=== PATIENT | male | born 1975 | race Caucasian/White ===

== ENCOUNTER 2016-11-07 20:09 | Emergency (ER) | payer SELFPAY ==
[2016-11-07 20:15] VITALS: BP 150/89; BMI 29.5
--- NOTE | 2016-11-07 21:33 | DR.GENAD ---
HPI - PCP Primary Care Physician: [email or web address] - HPI Comment HPI Comment: HISTORY OF HEMORRHIODS. BLEEDING PERSISTING AND NOW PAINFUL. BLOOD BRIGHT RED. - Complaint/Symptoms Chief Complaint Doctors Comments: RECTAL BLEEDING TIMES 3 DAYS. EXTERNAL HEMORRHOIDS AND NOW PAIN. Chief Complaint:: PT STATES" FOR THE LAST 3 DAYS I'VE BEEN PASSING BLOOD AND TODAY IT WAS ALOT OF BRIGHT RED BLOOD IN MY STOOL" PT ADMITS TOO HAVING HX OF HEMMOROIDS - Nurses notes reviewed Nurses Notes Review: Yes - Source History Provided: Patient - Mode of Arrival Mode of Arrival: Ambulatory - Timing Onset of Chief Complaint: 11/05/16 Came on: Suddenly - Duration Duration: Constant Duration: Days - Severity Severity: Moderate PMH - PMH Past Medical History: No Past Surgical History: No - Family History History of Family Medical Conditions: Yes Family Medical History: Diabetes Mellitus, Cancer, Hypertension - Social History Type of Tobacco Use: Cigarettes Alcohol Use: None Do you use any recreational Drugs:: No Lives With: Family Lives Where: Home - infectious screening In the last 2 months have you had wt loss of >10#?: NO Have you had fever, night sweats or hemotysis?: No Have you traveled outside the country in the last 6 months?: No Isolation: Standard ROS - Review of Systems Constitutional: No Symptoms Reported Eyes: No Symptoms Reported ENTM: No Symptoms Reported Respiratoy: No Symptoms Reported Cardiovascular: No Symptoms Reported Gastrointestinal/Abdominal: Abdominal Pain, Other (BLEEDING /RECTAL) Genitourinary: Pain, Bleeding (RECTAL). negative: Dysuria, Frequency, Hematuria Neurological: No Symptoms Reported Musculoskeletal: No Symptoms Reported Integumentary: No Symptoms Reported Hematologic/Lymphatic: No Symptoms Reported Endocrine: No Symptoms Reported All Other Systems: Reviewed and Negative PE - Vital Signs Vitals: Temperature 98.4 F Pulse Rate 77 Respiratory Rate 18 Blood Pressure 150/89 O2 Sat by Pulse Oximetry 98 - General Limitations: No Limitations General Appearance: Alert - Head Head Exam: Normal Inspection - Eyes Eye exam: Normal Appearance - ENT ENT Exam: Normal External Ear Exam External Ear Exam: Normal External Inspection TM/Canal Exam: Bilateral Normal Nose Exam: Normal Nose Exam Mouth Exam: Normal Inspection Throat Exam: Normal Inspection - Neck Neck Exam: Trachea Midline. negative: Tenderness, Meningismus, Lymphadenopathy - Chest Chest Inspection: Symmetric Chest Wall Rise - Respiratory Respiratory Exam: Normal Lung Sounds Bilat Respiratory Exam: Bilateral Clear to Auscultation - Cardiovascular Cardiovascular Exam: Regular Rate, Normal Rhythm, Normal Heart Sounds - Abdominal Exam Abdominal Exam: Normal Bowel Sounds, Soft, Other (RECTAL HEMORRHOID PRESENT WITH SIGNS OF RECENT BLEED. NO ACTIVE BLEED NOTED). negative: Tenderness - Extremities Extremities Exam: Normal Inspection - Back Back Exam: Normal Inspection - Neurologic Neurological Exam: Alert, Oriented X3 - Psychiatric Psychiatric Exam: Normal Affect, Normal Mood - Skin Skin Exam: Normal Color MDM - Differential Diagnosis Differential Diagnosis: RECTAL HEMORRHOID WITH BLEEDING, RECTAL PAIN. Course - Treatment Treatment: PATIENT WILL SEE HIS SURGEON IN [facility] THIS AM. - Education/Counseling Education/Counseling: Patient, Education Educated On: Diagnosis, Needs for Follow Up ROR - Labs Reviewed Laboratory Results Reviewed?: Yes Result Diagrams: 11/07/16 21:41 11/07/16 21:41 Laboratory: WBC 7.0 X10^3/uL (3.6-10.0) 11/07/16 21:41 RBC 5.02 X10^6/uL (4.7-6.0) 11/07/16 21:41 Hgb 15.4 g/dL (13.5-18.0) 11/07/16 21:41 Hct 44.5 % (42.0-54.0) 11/07/16 21:41 MCV 88.5 fL (80.0-100.0) 11/07/16 21:41 MCH 30.6 pg (27.0-34.0) 11/07/16 21:41 MCHC 34.6 g/dL (33.0-35.0) 11/07/16 21:41 RDW 13.3 % (11.6-16.5) 11/07/16 21:41 Plt Count 221 X10^3/uL (150.0-450.0) 11/07/16 21:41 MPV 9.3 fL (7.4-11.0) 11/07/16 21:41 Neut % 31.4 % (42.0-75.0) L 11/07/16 21:41 Lymph % 56.5 % (21.0-51.0) H 11/07/16 21:41 [place] % 7.5 % (0.0-13.0) 11/07/16 21:41 Eos % 3.9 % (0.9-2.9) H 11/07/16 21:41 Baso % 0.7 % (0.2-1.0) 11/07/16 21:41 Neut # 2.2 x10^3/uL (2.2-4.8) 11/07/16 21:41 Lymph # 4.0 X10^3/uL (1.3-2.9) H 11/07/16 21:41 [place] # 0.5 x10^3/uL (0.3-0.8) 11/07/16 21:41 Eos # 0.3 x10^3/uL (0.0-0.2) H 11/07/16 21:41 Baso # 0.1 X10^3/uL (0.0-0.1) 11/07/16 21:41 Absolute Nucleated RBC 0.0 /100WBC 11/07/16 21:41 INR Target Range - 11/07/16 21:41 INR 2.02 (0.8-1.3) H 11/07/16 21:41 PTT 27.3 SECONDS (22.9-36.5) 11/07/16 21:41 PTT Comment - 11/07/16 21:41 Sodium 142 mmol/L (136-145) 11/07/16 21:41 Corrected Sodium 143 mmol/L (136-145) 11/07/16 21:41 Potassium 3.4 mmol/L (3.5-5.1) L 11/07/16 21:41 Chloride 106 mmol/L (98-107) 11/07/16 21:41 Carbon Dioxide 24.5 mmol/L (21-32) 11/07/16 21:41 BUN 14 mg/dL (7-18) 11/07/16 21:41 Creatinine 1.29 mg/dL (0.70-1.30) 11/07/16 21:41 Est GFR (MDRD) Af Amer > 60 (>60) 11/07/16 21:41 Est GFR (MDRD) Non-Af > 60 (>60) 11/07/16 21:41 Glucose 135 mg/dL (65-99) H 11/07/16 21:41 Calcium 8.9 mg/dL (8.5-10.1) 11/07/16 21:41 Corrected Calcium TNP 05/24/17 21:41 Total Bilirubin 0.20 mg/dL (0.2-1.0) 11/07/16 21:41 AST 16 Units/L (15-37) 11/07/16 21:41 ALT 32 Units/L (12-78) 11/07/16 21:41 Alkaline Phosphatase 111 Units/L (46-116) 11/07/16 21:41 Total Protein 7.5 g/dL (6.4-8.2) 11/07/16 21:41 Albumin 3.8 g/dL (3.4-5.0) 11/07/16 21:41 Globulin 3.7 g/dL (2.5-4.5) 11/07/16 21:41 Albumin/Globulin Ratio 1.0 Ratio (1.1-2.1) L 11/07/16 21:41 - Diagnosis Discharge Problem: Hemorrhoid Qualifiers: Hemorrhoid type: second degree Qualified Code(s): K64.1 - Second degree hemorrhoids - Discharge Plan Disposition: HOME, SELF-CARE Condition: Stable Prescriptions: Hydrocortisone Supp 25 mg [Anucort-Hc Supp] 25 mg RECTAL BID PRN #24 supp PRN Reason: Hemmorhoid Itching/Discomfort - Follow ups/Referrals Follow ups/Referrals: ALTHEA RICO [STAFF PHYSICIAN] - 2 days NFD,None [Primary Care Provider] - 2 days - Instructions Instructions: Hemorrhoids, [id number] Additional Instructions: RETURN TO ED IF WORSE.
[2016-11-07 21:50] LABS: BASOPHILS # (AUTO) 0.1 X10^3/uL (0.0-0.1); EOSINOPHILS # (AUTO) 0.3 x10^3/uL (0.0-0.2); HEMOGLOBIN 15.4 g/dL (13.5-18.0); MEAN CORPUSCULAR HEMOGLOBIN 30.6 pg (27.0-34.0); RED BLOOD COUNT 5.02 X10^6/uL (4.7-6.0)
[2016-11-07 22:02] LABS: ALANINE AMINOTRANSFERASE 32 Units/L (12-78); ALBUMIN 3.8 g/dL (3.4-5.0); ALKALINE PHOSPHATASE 111 Units/L (46-116); ASPARTATE AMINO TRANSFERASE 16 Units/L (15-37); BASOPHILS % (AUTO) 0.7 % (0.2-1.0); BLOOD UREA NITROGEN 14 mg/dL (7-18); CALCIUM 8.9 mg/dL (8.5-10.1); CARBON DIOXIDE 24.5 mmol/L (21-32); CHLORIDE 106 mmol/L (98-107); COR NA(FOR HYPERGLY) 143 mmol/L (136-145); CREATININE 1.29 mg/dL (0.70-1.30); EOSINOPHILS % (AUTO) 3.9 % (0.9-2.9); GLUCOSE 135 mg/dL (65-99); HEMATOCRIT 44.5 % (42.0-54.0); LYMPHOCYTES % (AUTO) 56.5 % (21.0-51.0); MEAN CORPUSCULAR HGB CONC 34.6 g/dL (33.0-35.0); MEAN CORPUSCULAR VOLUME 88.5 fL (80.0-100.0); MEAN PLATELET VOLUME 9.3 fL (7.4-11.0); MONOCYTES # (AUTO) 0.5 x10^3/uL (0.3-0.8); MONOCYTES % (AUTO) 7.5 % (0.0-13.0); NEUTROPHILS # (AUTO) 2.2 x10^3/uL (2.2-4.8); NEUTROPHILS % (AUTO) 31.4 % (42.0-75.0); PLATELET COUNT 221 X10^3/uL (150.0-450.0); RED CELL DISTRIBUTION WIDTH 13.3 % (11.6-16.5); SODIUM 142 mmol/L (136-145); TOTAL PROTEIN 7.5 g/dL (6.4-8.2); eGFR BLACK RACES > 60 (>60); eGFR NON BLACK RACES > 60 (>60)
== END 2016-11-07 23:24 | disposition home or self-care (01) ==
LOC: ER 20:22
DX: K62.5 Hemorrhage of anus and rectum (principal)
CPT/HCPCS: 36415; 80053; 85025; 85610; 85730; 99282